=== PATIENT | female | born 1955 | race Caucasian/White ===

== ENCOUNTER → 2023-01-22 | Outpatient (CLI) | payer OTHER, MEDICARE | END | disposition home or self-care (01) | LOC: RAH 09:03 | PROVIDERS: ATTEND Family Medicine | DX: Z12.31 Encounter for screening mammogram for malignant neoplasm of breast (principal) | CPT/HCPCS: 77067 ==

== ENCOUNTER → 2024-03-02 | Outpatient (CLI) | payer OTHER, MEDICARE | END | disposition home or self-care (01) | LOC: RAH 09:22 | PROVIDERS: ATTEND Family Medicine | DX: Z12.31 Encounter for screening mammogram for malignant neoplasm of breast (principal) | CPT/HCPCS: 77067 ==

== ENCOUNTER 2025-04-06 19:54 | Emergency (ER) | payer OTHER, MEDICAID ==
[~2025-04-06] VITALS: Ht 152.4 cm; Wt 81.6 kg
[~2025-04-06 19:54] MED LIST: MECL-302 PO
--- NOTE | 2025-04-06 20:06 | EKG ---
[facility] Test Date: 2025-04-06 Test Time: 20:03:24 Pat Name: DEVIN CARRERA Department: ED Room: Gender: F Order Packer: [id number] : 1955 Requested By: JADA CROWELL Order Number: [id number] Reading MD: Mich Keys Measurements Intervals Harbinger Rate: 91 P: 4 MI: 153 QRS: -24 QRSD: 97 T: 28 QT: 383 QTc: 473 Interpretive Statements Sinus rhythm Compared to ECG 03/06/2025 10:58:01 Left-axis deviation no longer present Electronically Signed On 04-07-2025 13:16:55 CDT by Mich Keys Please click the below link to view image of tracing.
[2025-04-06 20:29] LABS: BASOPHILS # (AUTO) 0.03 K/uL (0.00-0.20); BASOPHILS % (AUTO) 0.5 % (0.0-5.0); EOSINOPHILS # (AUTO) 0.17 K/uL (0.00-0.70); EOSINOPHILS % (AUTO) 2.7 % (0.0-8.0); HEMATOCRIT 35.6 % (36-48); IMMATURE GRANULOCYTE ABSOLUTE 0.01 K/uL (0-1); LYMPHOCYTES # (AUTO) 1.2 K/uL (1.0-4.8); LYMPHOCYTES % (AUTO) 18.4 % (21.0-51.0); MEAN CORPUSCULAR HEMOGLOBIN 28.6 pg (27.0-33.0); MEAN CORPUSCULAR HGB CONC 32.9 g/dL (32.0-36.0); MONOCYTES # (AUTO) 0.7 K/uL (0.1-1.0); NEUTROPHILS # (AUTO) 4.3 K/uL (1.8-7.7); NEUTROPHILS % (AUTO) 67.2 % (40.0-77.0); PLATELET COUNT (AUTO) 197 K/uL (130-400); RED BLOOD CELL COUNT(AUTO) 4.09 MIL/uL (4.00-5.50); RED CELL DISTRIBUTION WIDTH 12.7 % (11.0-15.5); WHITE BLOOD COUNT (AUTO) 6.4 K/uL (4.8-10.8)
[2025-04-06] MEDS: 0.9%NACL 1000ML 2,448 ML IV ONE (20:38)
[2025-04-06 20:46] LABS: CREATININE 1.3 mg/dL (0.5-1.0); POTASSIUM 3.9 mmol/L (3.5-5.1)
--- NOTE | 2025-04-06 21:17 | ERN ---
ED Note History of Present Illness Stated Complaint: FEVER, CHILLS, HEADACHE Chief Complaint: Sepsis Time Seen by MD: 20:06 Dictation: This is a 70-year-old female who presented to the emergency room with complaints of fever chills and a headache that started today. At home she had a temp of 99 and she took Tylenol at 4:00 p.m.. She denied any cough sputum or hemoptysis other than the fever and chills and generalized body ache she says that she is generally feeling gum no history of any shortness of breath wheezing. She also reported that her grandson was recently diagnosed with flu. The headache is diffuse not associated with any visual changes or vomitings. No neurological changes. Temperature 101.7 heart rate 92 respirations 20 blood pressure 156/79 with a pulse oximetry of 98% on room air Her chronic medical problems include hypertension, obesity. Allergies: Coded Allergies: No Known Drug Allergies (Unverified Allergy, Unknown, 03/06/25) Home Meds Active Scripts Nirmatrelvir/Ritonavir (Paxlovid 150-100 mg Dose Pack) 150 Mg-100 Mg Tab.ds.pk, 1 EACH PO BID for 5 Days, #10 TAB Prov:JADA CROWELL MD 04/06/25 Azithromycin (Azithromycin) 250 Mg Tablet, 1 TAB PO AD for 5 Days, #6 TAB 0 Refills 2 the first day followed by 1 for days 2-5 Prov:JADA CROWELL MD 04/06/25 Prednisone (Prednisone) 50 Mg Tablet, 50 MG PO DAILY for 5 Days, #5 TAB 0 Refills Prov:JADA CROWELL MD 04/06/25 Meclizine HCl (Meclizine HCl) 25 Mg Tablet, 25 MG PO TID for vertigo, #30 TAB 0 Refills Prov:JUSTO SYKES NP 03/06/25 Past Medical History Past Medical History: Hypertension Surgical History: Hysterectomy Surgical History Other: LT KNEE SX Social History: Negative History: Not Applicable RN Note Reviewed/Agreed w/PFSH: Yes Review of System Dictation Constitutional: Positive for fever,chills, and denies weight loss Eyes: Negative for injury, pain,redness, and discharge ENT: Negative for injury,pain or swelling Cardiovascular: Negative for chest pain, palpitations, and edema Respiratory: Negative for shortness of breath, cough, and wheezing, Abdomen/GI: Negative for abdominal pain, nausea, vomiting, diarrhea, and co nstipation Back: Negative for injury and pain : Negative for injury, bleeding and discharge MS/Extremity: Negative for injury and deformity Skin: Negative for rash, and discoloration Neuro: Negative for headache, weakness, numbness, tingling, and seizure Psych: Negative for suicide ideation, homicidal ideation, and hallucinations Initial Vital Sign VS Vital Signs Date Time Temp Pulse Resp B/P (MAP) Pulse Ox O2 Delivery O2 Flow Rate FiO2 04/06/25 19:55 101.7 92 20 156/79 97 Room Air 04/06/25 20:24 0 21 Physical Exam Dictation General: awake, alert, NAD obese female who looks well not in any distress Head/Face: Normocephalic, atraumatic Eyes: PERRL, EOMI, vision at baseline ENT: oral cavity clear, TMs clear, no signs of infection Neck: Trachea midline, supple, no nuchal rigidity Cardiovascular: RRR, normal S1/S2, No MRGs, no JVD Respiratory: CTAB, no respiratory distress, No rales or wheezes Abdomen: Soft, non-tender, non-distended, normal bowel sounds, no guarding or rebound. Skin: Warm, dry, normal turgor, no rash MS/Extremity: Pulses equal, no cyanosis, neurovascular intact, FROM Neuro: COAx4, GCS 15, strength 5/5, CN 2-12 intact, normal cerebellar exam, normal gait, Psych: Normal behavior, mood, and affect normal Extremities-trace edema without any palpable cords, Homans sign is negative Results (Laboratory/Radiology) Laboratory/Radiology Laboratory Tests Test 04/06/25 20:15 04/06/25 21:32 White Blood Count 6.4 K/uL (4.8-10.8) Red Blood Count 4.09 MIL/uL (4.00-5.50) Hemoglobin 11.7 g/dL (12.0-16.0) L Hematocrit 35.6 % (36-48) L Mean Corpuscular Volume 87.0 fL (79-99) Mean Corpuscular Hemoglobin 28.6 pg (27.0-33.0) Mean Corpuscular Hemoglobin Concent 32.9 g/dL (32.0-36.0) Red Cell Distribution Width 12.7 % (11.0-15.5) Platelet Count 197 K/uL (130-400) Mean Platelet Volume 9.8 fL (7.5-10.5) Immature Granulocyte % (Auto) 0.2 % (0-1) Neutrophils (%) (Auto) 67.2 % (40.0-77.0) Lymphocytes (%) (Auto) 18.4 % (21.0-51.0) L Monocytes (%) (Auto) 11.0 % (3.0-13.0) Eosinophils (%) (Auto) 2.7 % (0.0-8.0) Basophils (%) (Auto) 0.5 % (0.0-5.0) Neutrophils # (Auto) 4.3 K/uL (1.8-7.7) Lymphocytes # (Auto) 1.2 K/uL (1.0-4.8) Monocytes # (Auto) 0.7 K/uL (0.1-1.0) Eosinophils # (Auto) 0.17 K/uL (0.00-0.70) Basophils # (Auto) 0.03 K/uL (0.00-0.20) Absolute Immature Granulocyte (auto 0.01 K/uL (0-1) Nucleated Red Blood Cells 0.0 % (0.0-0.19) Sodium Level 141 mmol/L (136-145) Potassium Level 3.9 mmol/L (3.5-5.1) Chloride Level 105 mmol/L (101-111) Carbon Dioxide Level 27 mmol/L (21-32) Blood Urea Nitrogen 22 mg/dL (7-18) H Creatinine 1.3 mg/dL (0.5-1.0) H Glomerular Filtration Rate Calc 45 mL/min (>90) Random Glucose 99 mg/dL (70-105) Lactic Acid Level 1.2 mmol/L (0.8-2.5) Total Calcium 9.1 mg/dL (8.5-10.1) Total Creatine Kinase 46 U/L (21-232) Troponin I High Sensitivity < 4 ng/L (4-50) L Influenza Type A Antigen Negative For Type A Influenza Type B Antigen Negative For Type B SARS-CoV-2 Antigen (Rapid) POSITIVE FOR SARS AG Group A Streptococcus Rapid negative (NEGATIVE) Labs Reviewed?: Yes ED Course ED Course Orders Procedure Category Date Status Time Iv Insertion CPOE 04/06/25 Transmitted 19:57 Pulse Ox(Continuous) RT 04/06/25 Transmitted 19:57 Vital Signs Per CPOE 04/06/25 Transmitted Routine 19:57 12 Lead Ekg Tracing- EKG 04/06/25 Resulted Technical 19:57 Cbc With Differential LAB 04/06/25 Complete 19:57 Blood Cult SUSAN 04/06/25 In Process 19:57 Creatine Kinase, Total LAB 04/06/25 Complete 19:57 Troponin I High LAB 04/06/25 Complete Sensitivity 19:57 Lactic Acid LAB 04/06/25 Complete 19:57 Basic Metabolic Panel LAB 04/06/25 Complete 19:57 0.9%Nacl 1000ml (Ns PHA 04/06/25 Complete 1000ml) 20:30 Chest 1vw RAD 04/06/25 Resulted 20:08 Influenza Type A & B, LAB 04/06/25 Complete Rapid 21:15 Covid19 (Sars Antigen LAB 04/06/25 Complete Rapid) 21:15 Rapid (Group A Strep) LAB 04/06/25 Complete 21:15 Ketorolac PHA 04/06/25 Complete Tromethamine 15mg/Ml 22:30 Dexamethasone 4mg/Ml PHA 04/06/25 Complete 1ml Vial (Dexametha 23:00 Azithromycin PHA 04/06/25 Complete (Zithromax) 23:00 Current Medications Medications (Trade) Dose Ordered Sig/Paulo Route PRN Reason Start Time Stop Time Status Last Admin Dose Admin Azithromycin (Zithromax) 500 mg ONCE ONCE PO 04/06/25 23:00 04/06/25 23:01 DC 04/06/25 23:59 Dexamethasone Sodium Phosphate (dexaMETHasone 4MG/ML 1ML VIAL) 6 mg ONCE ONCE IVP 04/06/25 23:00 04/06/25 23:01 DC 04/06/25 23:58 Ketorolac Tromethamine (toRADol) 15 mg ONCE ONCE IV 04/06/25 22:30 04/06/25 22:31 DC 04/06/25 22:26 Sodium Chloride 2,448 ml @ 816 mls/hr ONCE ONCE IV 04/06/25 20:30 04/06/25 23:29 DC 04/06/25 20:38 Vital Signs Date Time Temp Pulse Resp B/P (MAP) Pulse Ox O2 Delivery O2 Flow Rate FiO2 04/07/25 00:08 100.9 82 18 123/66 98 Room Air* 0 21 04/06/25 21:25 102.4 84 19 137/59 97 Room Air* 0 21 04/06/25 20:24 101.3 86 19 140/82 97 Room Air* 0 21 04/06/25 19:55 101.7 92 20 156/79 97 Room Air We will perform diagnostic labs, advanced imaging and administer medications according to the patient's complaint. Once the results are available, will review and personally interpreted the labs to rule out any acute life-thre atening emergency the trach require immediate intervention and treatment. I will then re-evaluate the patient after treatment and diagnostic exams have return to determine whether the patient requires any further testing, can safely be discharged home or need further admission to hospital for additional treatment and evaluation. The viral testing was negative for influenza but positive for COVID 19. CBC with a normal limits BNP 7 showed a slight increase in BUN and creatinine perhaps related to dehydration. I do not have any old labs to compare. Chest x-ray was negative for any acute infiltrate Initially due to patient meeting the sepsis criteria sepsis alert was called and sepsis pathway was initiated. Patient apparently urinated just before coming into the ER and she could not provide a urine sample I had a long meeting with the patient and her daughter at bedside and updated them on workup so far labs and positive COVID testing and I went over the treatment criteria and at this time she is on room air with no respiratory distress or infiltrates and offered to treat her as outpatient patient and daughter were agreeable and would prefer that. Her SHERRY index is excellent. Medical Decision Making MDM MDM: Differential diagnosis: Acute viral syndrome, influenza, COVID, bronchitis, pneumonia, UTI Rationale: Tests considered and ordered secondary to shared decision making include: Previous outside records reviewed: Old ER visits. Risk of complication and/or morbidity or mortality of patient management: None Medications-Per medication reconciliation Need for hospitalization: Patient does not meet criteria for hospitalization. Need for emergency major/minor surgery: No There are no social concerns with this patient. Prescription drug management Prescriptions will include symptomatic care Patient's prior external medical records from other ER visits were reviewed by me as indicated. Prior testing and results from previous visits were reviewed. Prior tests were taken into account with medical decision making and resource utilization, independent historian/historians were used to obtain complete medical history. I independently interpreted the test that were performed, results were reviewed by me and considered findings on radiology if ordered. Medical management and examination interpretation discussions were had by me with other qualified healthcare professionals as indicated for the patient's care. Problem List Problem List: (1) COVID-19 virus infection DX & DISP Disposition: Discharge Departure Impression: Primary Impression: COVID-19 virus infection Condition: Stable Scripts Nirmatrelvir/Ritonavir (Paxlovid 150-100 mg Dose Pack) 150 Mg-100 Mg Tab.ds.pk 1 EACH PO BID for 5 Days, #10 TAB Prov: JADA CROWELL MD 04/06/25 Azithromycin (Azithromycin) 250 Mg Tablet 1 TAB PO AD for 5 Days, #6 TAB 0 Refills 2 the first day followed by 1 for days 2-5 Prov: JADA CROWELL MD 04/06/25 Prednisone (Prednisone) 50 Mg Tablet 50 MG PO DAILY for 5 Days, #5 TAB 0 Refills Prov: JADA CROWELL MD 04/06/25 Additional Instructions: Patient and the caregiver have been informed of all the diagnostic tests and the imaging conducted during the today's visit to the emergency room and has verbalized understanding of the results I have personally reviewed and interpreted all diagnostic exams performed here in the ER today as well as the vital signs documented by the nursing staff. The patient is now being discharged to home and should follow up with the primary care physician or the specialist as directed by the ER staff. Follow-up with primary care provider in 1 to 2 days. Take medications as dir ected here in the emergency room. Okay to continue home medications unless otherwise discussed during your visit in the emergency room today. Return to your nearest emergency room if symptoms worsen or if there is no improvement. Call 911 if you need immediate assistance. Take Tylenol or Motrin [id number] as needed and if no contraindications are present. Increase oral hydration. A wound culture or urine culture was ordered here in the emergency room department please follow-up with primary care provider and advise them to get repeat ports from our facility. If you had any Nikos wrap/splints that were applied here, please do not remove them until you see your primary care or specialty. Referrals: SAMEERA FRANCO (PCP) JADA CROWELL MD April 06, 2025 21:17
[2025-04-06 21:49] LABS: RAPID GROUP A STREP negative (NEGATIVE)
--- NOTE | 2025-04-06 21:50 | HMCIMG ---
Exam Type: CHEST 1VW Clinical Information: sepsis Comparison: None Findings: The lungs are clear of infiltrates. The heart is normal in size. The bony and soft tissue structures of the chest are unremarkable. Impression: Clear lungs.
[2025-04-06 21:59] LABS: INFLUENZA TYPE A Negative For Type A (NEGATIVE); INFLUENZA TYPE B Negative For Type B (NEGATIVE)
[2025-04-06 22:04] LABS: COVID19 (SARS ANTIGEN RAPID) POSITIVE FOR SARS AG (NEGATIVE)
[2025-04-06] MEDS: ketOROlac 15MG/ML VIAL (15MG/ML) IV ONE (22:26)
[2025-04-06] MEDS ORDERED: NIRM1TAB7 PO (22:49)
[2025-04-06] MEDS ORDERED: AZIT250T9 PO (22:49)
[2025-04-06] MEDS ORDERED: PRED50TA2 PO (22:49)
[2025-04-06] MEDS: dexaMETHasone SOD PHOSPHATE 4 MG/ML 1ML VIAL IVP ONE (23:58)
[2025-04-06] MEDS: AZITHROMYCIN 250 MG TABLET PO ONE (23:59)
[2025-04-07 00:08] VITALS: BP 123/66; PULSE 82; RESP 18; TEMP 101; O2SAT 98
== END 2025-04-07 00:08 | disposition home or self-care (01) ==
LOC: EDH 19:54
DX: U07.1 COVID-19 (principal); I10 Essential (primary) hypertension; Z90.710 Acquired absence of both cervix and uterus
CPT/HCPCS: 99285; 96374; 71045; 96375; 87426; 82550; 84484; 80048; 85025; 87040 ×2; 87880; 87804 ×2; 83605; 36415; 93005; J1100; J1885

== ENCOUNTER → 2025-05-01 | Outpatient (CLI) | payer OTHER, MEDICAID ==
[~2025-05-01] MED LIST changes: +AZIT250T9 PO; +NIRM1TAB7 PO; +PRED50TA2 PO
--- NOTE | 2025-05-02 09:25 | HMCIMG ---
Exam Type: MAMMO SCREENING BILATERAL Clinical Information: ROUTINE SCREENING Comparison: March 02, 2024 Technique: Mammogram with CAD was performed with CC and MLO projections. CAD shows no worrisome regions. FINDINGS: The breasts are heterogeneously dense, which may obscure small masses. No dominant mass or suspicious microcalcification identified. There is no nipple retraction or skin thickening. Benign-appearing calcifications are seen. CAD shows no worrisome regions. IMPRESSION: 1. No mammographic signs of malignancy. 2. Routine follow-up recommended. CATEGORY 2: BENIGN FINDINGS Note: A negative x-ray should not delay biopsy if a dominant or clinically suspicious mass is present, since 8-10% of cancers are not identified by mammography. Dense breasts may obscure an underlying neoplasm.
== END | disposition home or self-care (01) ==
LOC: RAH 10:12
PROVIDERS: ATTEND Family Medicine
DX: Z12.31 Encounter for screening mammogram for malignant neoplasm of breast (principal); R92.333 Mammographic heterogeneous density, bilateral breasts
CPT/HCPCS: 77067